=== PATIENT | male | born 1995 | race Caucasian/White ===

== ENCOUNTER 2023-01-26 06:38 | Day surgery (SDC) | payer BC, SELFPAY ==
[2023-01-25 09:26] VITALS: BMI 27.7
[2023-01-26] VITALS (10 sets, daily range): BP systolic 143–162; BP diastolic 83–112; PULSE 78–99; RESP 16–18; TEMP 36.2–36.4; O2SAT 97–99
[2023-01-26] MEDS: sodium chloride 0.9% 1,000 ML 30 ML IV (07:21)
--- NOTE | 2023-01-26 07:27 | ANES.PREANE2 ---
Pre-Anesthetic Assessment Height/Weight: Height 1.85 m Weight 95.254 kg Temp Pulse Resp BP Pulse Ox O2 Del Method 97.6 F 78 18 162/112 98 Room Air 01/26/23 06:50 01/26/23 06:50 01/26/23 06:50 01/26/23 06:50 01/26/23 06:50 01/26/23 06:55 Operation Date: 01/26/23 08:10 Proposed Procedures p [id number] Right laporscopic inguinal hernia with mesh K40.90(Right) - Carlos Manuel Alexander MD Familial anesthetic complications: None Was Beta Cece taken within 24 hours: N/A Was Clonidine taken within 24 hours: N/A Last intake: Intake Last Liquid Date 01/26/23 Last Liquid Time 05:30 Last Solid Date 01/25/23 Last Solid Time 17:00 Social No alcohol and No tobacco Exam alert, oriented x 3, clear to auscultation bilaterally and regular rate & rhythm Airway Mallampati: Class I Dentition: full and other (false tooth) Anesthetic Plan ASA status: 1 Anesthesia: General Risk of > 500 ml blood loss (7ml/kg in children): No Medications/Allergies Home Medications Medication Instructions Recorded Confirmed Last Taken Type No Known Home Medications 01/06/23 01/25/23 Unknown History Allergies Allergy/AdvReac Type Severity Reaction Status Date / Time No Known Allergies Allergy Verified 01/25/23 09:23 Current Medications Generic Name Dose Route Start Last Admin Trade Name Freq PRN Reason Stop Dose Admin Sodium Chloride 1,000 mls @ 30 mls/hr 01/26/23 06:45 01/26/23 07:21 Sodium Chloride 0.9% IV 01/27/23 06:44 30 mls/hr .Q24H MIHAELA Administration Data Anesthesia Cardiac Studies: No Data to Display
--- NOTE | 2023-01-26 07:43 | W.PM.OPSUD ---
Surgery/Procedure H&P Update DATE OF PROCEDURE: January 26, 2023 DATE H&P PERFORMED: 01/06/23 H&P UPDATE INFORMATION: I have reviewed H&P completed within last 30 days, I have examined patient prior to procedure, No changes to prior documentation and H&P is in [facility] on date indicated PLANNED PROCEDURE: Operation Date: 01/26/23 08:10 Proposed Procedures p [id number] Right laporscopic inguinal hernia with mesh K40.90(Right) - Carlos Manuel Alexander MD
[2023-01-26] MEDS: ceFAZolin 2,000 MG in sodium chloride 0.9% (plus) 50 ML 100 MG IV (08:06)
[2023-01-26] MEDS: BUPivacaine 0.25% INJ 10 mL INJECTION (09:12)
[2023-01-26] MEDS: lidocaine-epi 1% 20 mL INJ INJECTION (09:16)
--- NOTE | 2023-01-26 09:37 | PM.OP ---
Operative Report Date of procedure: January 26, 2023 Pre-op diagnosis: Right inguinal hernia Post-op diagnosis: Same Procedure done: Laparoscopic right inguinal hernia repair with mesh Implants: Large right Bard 3D max mesh Surgeon: Carlos Manuel Alexander MD Jet Dyeing Machine Operator: ONESIMO OR Staff Estimated blood loss: 5 Complications: None Findings: Indirect right inguinal hernia Brief History: 27-year-old male with a right inguinal hernia who presented to my clinic for evaluation for possible repair. After a lengthy discussion regarding risk and benefits patient agreed to proceed with laparoscopic right inguinal hernia repair with mesh. Procedure: Patient was brought into the OR. He was placed in the supine position, general anesthesia was given. The abdomen was prepped and draped in the usual sterile fashion. Timeout was conducted. A 1.5 cm incision was made on the infraumbilical position. The incision was deepened to the level of the fascia. The left rectus sheath was then accessed, the muscle was retracted laterally thus creating a retrorectus space. The balloon insufflator was then inserted in the cavity and carefully tunneled down to the level of the pubis. The insufflator was then inflated under direct visualization in the properitoneal space. Balloon insufflator was then removed and replaced with a 12 mm trocar with balloon. Additional 5 mm trocars were placed under direct visualization in the suprapubic and midline below the umbilicus position. The right space of Borgess was developed and dissected. The peritoneum was pushed down. The cord structures were identified, small indirect hernia sac was identified and was dissected from the cord structures. After fixation was completed there was no evidence of additional contained herniation through the direct or indirect space. We then placed a large right-sided Bard 3D max mesh into the preperitoneal space, the mesh was lay down covering the direct, indirect and femoral spaces. I then tacked the mesh to El's ligament medially. The space was desufflated under direct visualization and the mesh was laying down in a correct position. Trocars were removed. The fascia of the anterior rectus sheath at the level of umbilicus was closed with #0 Vicryl. Local anesthesia was infiltrated in all ports. The skin was then closed with #4-0 Monocryl. Dermabond was applied. At the end of the procedure all counts were correct. The patient tolerated well the procedure and was transferred to the PACU in stable condition.
[2023-01-26] MEDS: meloxicam 7.5 mg tablet 15 MG PO (10:46)
--- NOTE | 2023-01-26 11:00 | ANE.PACU2 ---
Inpatient post-anesthesia follow up: Airway intact: Yes Vital signs: Temperature 97.2 F Pulse Rate 81 Respiratory Rate 16 Blood Pressure 143/90 Pulse Oximetry 99 Oxygen Delivery Me thod Room Air Oxygen Flow Rate 6 Fraction of Inspir ed Oxygen Hydration adequate: Yes Nausea and vomiting: No Pain level: 1 Mental status: Baseline
== END 2023-01-26 11:00 | disposition home or self-care (01) ==
PROVIDERS: PCP Nurse Practitioner Family; Visit Provider Surgery
PROC: (CPT 49650; principal; 2023-01-26 08:00)
DX: K40.90 Unilateral inguinal hernia, without obstruction or gangrene, not specified as recurrent (principal)
CPT/HCPCS: 49505; 51702; C1781; J0690; J1100; J1885; J2405; J2704; J3010; J3490; J7030